=== PATIENT | female | born 1980 | race Caucasian/White ===

== ENCOUNTER 2023-04-11 18:57 | Emergency (ER) | payer MEDICAID ==
[2023-04-11] MEDS ORDERED: Acetaminophen/HYDROcodone 325-5 MG Tab PO ONE (19:15)
[2023-04-11 19:25] VITALS: PULSE 102
[2023-04-11 20:31] VITALS: BP 128/88
== END 2023-04-11 20:13 | disposition home or self-care (01) ==
LOC: VM.ED 18:57
DX: S80.11XA Contusion of right lower leg, initial encounter (principal); J44.9 Chronic obstructive pulmonary disease, unspecified; Z72.0 Tobacco use; Z88.1 Allergy status to other antibiotic agents; Z88.2 Allergy status to sulfonamides; W10.9XXA Fall (on) (from) unspecified stairs and steps, initial encounter
CPT/HCPCS: 73562; 73590; 99283; A9270

== ENCOUNTER 2023-07-14 09:37 | Day surgery (SDC) | payer MEDICAID ==
[~2023-07-14 09:37] MED LIST: Lactated Ringers 1,000 ML IV SCH
[2023-07-14] MEDS ORDERED: Rocuronium 50 MG/5 ML Vial ONE (10:27)
[2023-07-14] MEDS ORDERED: Succinylcholine 200 MG/10 ML MDV ONE (10:27)
[2023-07-14] MEDS ORDERED: Midazolam 1 MG/ML 2 ML SDV ONE (10:28)
[2023-07-14] MEDS ORDERED: fentaNYL 100 MCG/2 ML SDV ONE (10:28)
[2023-07-14] MEDS ORDERED: Propofol 200 MG/20 ML SDV ONE (10:28)
[2023-07-14] MEDS ORDERED: ceFAZolin 1 GM Vial ONE (10:37)
[2023-07-14] MEDS ORDERED: Bupivacaine 0.5% 30 ML SDV ONE (10:42)
[2023-07-14] MEDS ORDERED: Ondansetron 4 MG/2 ML SDV IVPUSH PRN (11:57)
[2023-07-14] MEDS ORDERED: Acetaminophen/HYDROcodone 325-5 MG Tab PO PRN (11:58)
[2023-07-14] MEDS ORDERED: Naloxone 0.4 MG/ML SDV IVPUSH PRN (11:58)
[2023-07-14] MEDS ORDERED: diphenhydrAMINE 50 MG/ML SDV IVPUSH PRN (12:01)
[2023-07-14] MEDS: Morphine 2 MG/ML SYRINGE IVPUSH PRN ×2 (12:09→13:43)
[2023-07-14 13:46] VITALS: BP 113/76; PULSE 69
[2023-07-28] MEDS ORDERED: Lactated Ringers 1,000 ML IV SCH (07:00)
== END 2023-07-14 14:15 | disposition home or self-care (01) ==
LOC: VM.SDS 09:37
PROVIDERS: ATTEND Surgery
DX: K42.9 Umbilical hernia without obstruction or gangrene (principal); K43.2 Incisional hernia without obstruction or gangrene; F17.210 Nicotine dependence, cigarettes, uncomplicated; E66.9 Obesity, unspecified; Z68.37 Body mass index [BMI] 37.0-37.9, adult; Z88.1 Allergy status to other antibiotic agents; Z88.2 Allergy status to sulfonamides
CPT/HCPCS: 00750; 49593; A9270; J0690; J1200; J2250; J2270; J2704; J3010; J3490; J7120; J0330